=== PATIENT | female | born 1970 | race African-American/Black ===

== ENCOUNTER 2018-03-04 20:24 | Emergency (ER) | payer BC, OTHER ==
[2018-03-04] MEDS ORDERED: NORMAL SALINE 1000 ML 1,000 ML IV ONE (22:22)
[2018-03-04] MEDS ORDERED: METOCLOPRAMIDE HCL INJ/PF 10 MG/2 ML SDV IV ONE (22:22)
--- NOTE | 2018-03-04 22:24 | ER Document Report ---
ED Medical Screen (RME) - General Chief Complaint: Headache Stated Complaint: HEADACHE/NAUSEA Time Seen by Provider: 03/04/18 22:17 Primary Care Provider: CHERRI BRADLEY MD [Primary Care Provider] - Follow up as needed Notes: 48-year-old female with chief complaint of headache for the past 2 days over the right side of her head, vomited multiple times yesterday, 3 times today. States that headache began first, then vomiting, now she has developed upper abdominal pain worse on the right side. She has had cholecystectomy. History of intermittent headaches. Headache was slowly progressive. TRAVEL OUTSIDE OF THE [place] IN LAST 30 DAYS: No - Related Data Allergies/Adverse Reactions: No Known Allergies Allergy (Unverified 03/04/18 20:28) Past Medical History - Social History Frequency of alcohol use: None Drug Abuse: None Renal/ Medical History: Denies: Hx Peritoneal Dialysis Physical Exam - Vital signs Vitals: Temp Pulse Resp BP Pulse Ox 98.3 F 74 16 127/55 H 99 03/04/18 20:45 03/04/18 20:45 03/04/18 20:45 03/04/18 20:45 03/04/18 20:45 - General General appearance: Other - Patient appears slightly tired, does not appear to be in distress - Neurological Neuro grossly intact: Yes Cognition: Normal Orientation: AAOx4 Osmin Coma Scale Verbal: Oriented Osmin Coma Scale Motor: Obeys Commands Speech: Normal Cranial nerves: Normal Cerebellar coordination: Normal Motor strength normal: LUE, RUE, LLE, RLE Course - Vital Signs Vital signs: Temp Pulse Resp BP Pulse Ox 98.3 F 74 16 127/55 H 99 03/04/18 20:45 03/04/18 20:45 03/04/18 20:45 03/04/18 20:45 03/04/18 20:45 Doctor's Discharge - Discharge Referrals: CHERRI BRADLEY MD [Primary Care Provider] - Follow up as needed
[2018-03-04 23:01] LABS: ALANINE AMINOTRANSFERASE 27 U/L (9-52); ALBUMIN 4.1 g/dL (3.5-5.0); ALKALINE PHOSPHATASE 65 U/L (38-126); ASPARTATE AMINO TRANSFERASE 27 U/L (14-36); BILIRUBIN,DIRECT 0.3 mg/dL (0.0-0.4); BILIRUBIN,TOTAL 0.3 mg/dL (0.2-1.3); BLOOD UREA NITROGEN 12 mg/dL (7-20); CALCIUM 8.9 mg/dL (8.4-10.2); GLUCOSE 87 mg/dL (75-110); POTASSIUM 4.8 mmol/L (3.6-5.0); TOTAL PROTEIN 7.3 g/dL (6.3-8.2)
[2018-03-04 23:07] LABS: ANION GAP 5 (5-19); CARBON DIOXIDE 30 mmol/L (22-30); CHLORIDE 107 mmol/L (98-107); SODIUM 141.8 mmol/L (137-145)
[2018-03-04] MEDS ORDERED: MORPHINE SULFATE 10 MG/ML INJ IV ONE (23:16)
[2018-03-04] MEDS ORDERED: LORAZEPAM INJ 2 MG/1 ML VIAL IV ONE (23:16)
[2018-03-04] MEDS ORDERED: PANTOPRAZOLE SODIUM 40 MG VIAL IV ONE (23:21)
[2018-03-04] MEDS ORDERED: TETRACAINE HCL 0.5% OPH SOLN 4 ML OD ONE (23:21)
--- NOTE | 2018-03-04 23:23 | ER Document Report ---
ED General - General Chief Complaint: Headache Stated Complaint: HEADACHE/NAUSEA Time Seen by Provider: 03/04/18 22:17 Primary Care Provider: CHERRI BRADLEY MD [NO LOCAL MD] - Follow up as needed Notes: Patient is a 48-year-old female who presents with complaint of headache. She says that she started having headache a few days ago. She says is mild at first but is gradually worsened over the last 2 days. The headache has continuously been around the right eye. She says is into the right cheondoism area and into the right eye. She says she has some intermittent blurred vision in right eye. She denies any pain in the rest of her head. She has some photophobia associated with the right eye. She is also had some vomiting. Since vomiting she is having some upper abdominal pain. Pain is mostly in right upper quadrant and epigastric region. She does admit that she takes large amount of ibuprofen and Motrin. She does not take anything for acid reflux or gastritis. TRAVEL OUTSIDE OF THE [place] IN LAST 30 DAYS: No - Related Data Allergies/Adverse Reactions: No Known Allergies Allergy (Verified 03/05/18 00:30) Past Medical History - Social History Smoking Status: Current Every Day Smoker Frequency of alcohol use: None Drug Abuse: None Family History: Reviewed & Not Pertinent Patient has suicidal ideation: No Patient has homicidal ideation: No Renal/ Medical History: Denies: Hx Peritoneal Dialysis Review of Systems - Review of Systems Notes: My Normal Review Basic REVIEW OF SYSTEMS: CONSTITUTIONAL : Denies fever, chills, or sweats. Denies recent illness. EENT: Denies eye, ear, throat, or mouth pain or symptoms. Denies nasal or sin us congestion. RESPIRATORY: Denies cough, cold, or chest congestion. Denies shortness of breath, difficulty breathing, or wheezing. GASTROINTESTINAL: Upper abdominal pain. Denies nausea, vomiting GENITOURINARY: Denies difficulty urinating, painful urination, burning, frequency, or blood in urine. MUSCULOSKELETAL: Denies neck or back pain or joint pain or swelling. SKIN: Denies rash or skin lesions. NEUROLOGICAL: Denies altered mental status or loss of consciousness. Has a headache. Denies weakness or paralysis or loss of use of either side. Denies problems with gait or speech. Denies sensory or motor loss. ALL OTHER SYSTEMS REVIEWED AND NEGATIVE. Physical Exam - Vital signs Vitals: Temp Pulse Resp BP Pulse Ox 98.3 F 74 16 127/55 H 99 03/04/18 20:45 03/04/18 20:45 03/04/18 20:45 03/04/18 20:45 03/04/18 20:45 - Notes Notes: General Appearance: Well nourished, alert, cooperative, no acute distress, mild obvious discomfort. Vitals: reviewed, See vital signs table. Head: no swelling or tenderness to the head Eyes: PERRL, EOMI, Conjuctiva clear, intraocular pressure Via Manjinder-Pen is 21 in the right eye. Mouth: No decreasd moisture Lungs: No wheezing, No rales, No rhonci, No accessory muscle use, good air exchange bilaterally. Heart: Normal rate, Regular rythm, No murmur, no rub Abdomen: Normal BS, soft, No rigidity, No abdominal tenderness, No guarding, no rebound, no abdominal masses, no organomegaly Extremities: strength 5/5 in all extremities, good pulses in all extremities, no swelling or tenderness in the extremities, no edema. Skin: warm, dry, appropriate color, no rash Neuro: speech clear, oriented x 3, normal affect, responds appropriately to questions. Cranial nerves II through XII are intact. Distal sensation intact. Patient moves all extremities without difficulty. Course - Re-evaluation Re-evalutation: 03/05/18 03:00 After receiving the morphine her headaches did improve. Is not completely gone but is improved some. She still has some blurred vision. It being that she is still having some visual changes I did go forward with a CT of the head to rule out mass or retro-ocular mass or vascular abnormality as sometimes these can cause unilateral headache with blurred vision. I suspect that most like she is having a ocular migraine. CT scan was normal. Her symptoms have been ongoing for 2 days and therefore I would expect to see evidence of a stroke on CTa if there is one. Once stroke is still not 100% ruled out with CTA; however, patient is having no other focal neurologic deficits and visual disturbance started with the headache making this more likely an ocular migraine. I will refer her to ophthalmology to follow-up with. Also have her follow-up with her neurologist, Dr. Bradley. I informed her that if she is having recurrent worsening headaches, worsening blurred vision, or any new focal neurologic deficits that she must return to ER immediately. Patient agrees with plan will be discharged home. Dictation of this chart was performed using voice recognition software; therefore, there may be some unintended grammatical errors. - Vital Signs Vital signs: Temp Pulse Resp BP Pulse Ox 98.3 F 74 14 109/62 99 03/04/18 20:45 03/05/18 00:45 03/05/18 00:45 03/05/18 01:01 03/04/18 20:45 - Laboratory Result Diagrams: 03/04/18 22:35 Laboratory results interpreted by me: 03/04/18 22:35 Creatinine 0.49 L Discharge - Discharge Clinical Impression: Headache Qualifiers: Headache type: unspecified Headache chronicity pattern: acute headache Intractability: not intractable Qualified Code(s): R51 - Headache Abdominal pain Qualifiers: Abdominal location: epigastric Qualified Code(s): R10.13 - Epigastric pain Condition: Good Disposition: HOME, SELF-CARE Additional Instructions: Your CTa of your head did not show any signs of tumor, bleeding, or stroke. You appear to be having an ocular headache. Due to the visual and eye involvement I want you to follow up closely with the ophthamologist (Dr. Boo). Please call his office this am. I have prescribed some medication (Fioricet) that should help with the headaches. Please only take it if the headaches reoccur. Please be aware that the Fioricet can lead to some sleepiness so do not drive when taking it. Please return to the ER if you have intractable headaches, worsening pain, fevers, vomiting, worsening blurred vision, or any weakness or numbness in your extremities. Please avoid NSAID medications such as Ibuprofen, aspirin, Aleve, Naprosyn, and Advil. It is okay to take tylenol. Please take Pepcid everyday. Please avoid spicy foods, acidic foods, and fried foods for the next week and eat a very bland diet so your stomach lining has an opportunity to heal. Prescriptions: Butalb/Acetaminophen/Caffeine [Fioricet (50-325-40 mg) Tablet] 1 tab PO Q4HP PRN #10 tab PRN Reason: Famotidine [Pepcid 40 mg Tablet] 40 mg PO DAILY #30 tablet Forms: Return to Work Referrals: CHERRI BRADLEY MD [NO LOCAL MD] - Follow up in 3-5 days NIKKI BOO MD [ACTIVE STAFF] - Follow up in 3-5 days
[2018-03-05 01:15] VITALS: BP 109/62
--- NOTE | 2018-03-05 02:34 | RADIOLOGY REPORT (SQ) ---
EXAM DESCRIPTION: CT HEAD, with CTA ANGIOGRAPHY WITHOUT THEN WITH IV CONTRAST COMPLETED DATE/TME: 03/05/2018 01:25 CLINICAL HISTORY: 48 years, Female, headache with blurred vision in right eye. COMPARISON: None. TECHNIQUE: [id number] Images stored on PACS. All CT scanners at this facility use dose modulation, iterative reconstruction, and/or weight based dosing when appropriate to reduce radiation dose to as low as reasonably achievable (ALARA). Axial CTA images were obtained with coronal and sagittal MIPS reconstructions. This exam was performed according to our departmental dose-optimization program, which includes automated exposure control, adjustment of the mA and/or kV according to patient size and/or use of iterative reconstruction technique. [facility]: Dose Right [facility]: CareDose [facility]: Dose Right [facility]: Teradose 4D [facility]: Your.MD LIMITATIONS: None. FINDINGS: CT brain: The globes are intact. Paranasal sinuses and mastoid air cells are unremarkable. No displaced or depressed skull fracture. No intra or extra-axial hemorrhage. CT is limited for evaluation of acute infarct. No CT evidence for large or territorial acute infarct. No mass or midline shift. CTA brain: The vertebral basilar system is unremarkable. Negative for basilar tip aneurysm. The petrous and remaining intracranial portions of the internal carotid arteries are patent bilaterally. No CTA evidence for aneurysm or arteriovenous malformation. No CTA evidence for stenosis, vascular encasement, or displacement. IMPRESSION: Unremarkable CT brain and unremarkable CTA brain TECHNICAL DOCUMENTATION: Quality ID # [id number]: Final reports with documentation of one or more dose reduction techniques (e.g., Automated exposure control, adjustment of the mA and/or kV according to patient size, use of iterative reconstruction technique) copyright 2011 [employer] ([employer])- All Rights Reserved
[2018-03-05] MEDS ORDERED: BUTALB/ACETAMINOPHEN/CAFFEINE 1 TAB EACH PO ONE (02:50)
== END 2018-03-05 03:10 | disposition home or self-care (01) ==
LOC: ER 20:24
DX: R51 Headache (principal); R10.13 Epigastric pain; H53.8 Other visual disturbances; R11.2 Nausea with vomiting, unspecified; R10.10 Upper abdominal pain, unspecified; R10.11 Right upper quadrant pain; Z79.899 Other long term (current) drug therapy; F17.200 Nicotine dependence, unspecified, uncomplicated
CPT/HCPCS: 99284; 96361; 96374; 96375; 36415; 83690; 84703; 80053; 70496; J3490; J2765; J2270; J2060; S0164; J7030

== ENCOUNTER 2019-03-31 18:37 | Emergency (ER) | payer BC ==
[2019-03-31] MEDS ORDERED: SULFAMETHOXAZOLE/TRIMETHOPRIM 800-160 MG TABLET PO ONE ×2 (19:35→22:45)
[2019-03-31] MEDS ORDERED: HYDROCODONE/ACETAMINOPHEN 5-325 MG TABLET PO ONE ×2 (19:35→22:45)
[2019-03-31] MEDS ORDERED: CEPHALEXIN 500 MG CAPSULE PO ONE ×2 (19:35→22:45)
--- NOTE | 2019-03-31 19:38 | ER Document Report ---
HPI - HPI Patient complains to provider of: Abscess Time Seen by Provider: 03/31/19 19:29 Onset/Duration: Worse Quality of pain: Achy Pain Level: 4 Context: Patient presents complaining of abscess to right axilla for the past 3 days. Patient denies any history of MRSA. Patient denies any fever. Associated Symptoms: denies: Fever, Nausea, Vomiting Exacerbated by: Movement Relieved by: Denies Similar symptoms previously: No Recently seen / treated by doctor: No - ROS ROS below otherwise negative: Yes Systems Reviewed and Negative: Yes All other systems reviewed and negative - CONSTITUTIONAL Constitutional: DENIES: Fever, Chills - GASTROINTESTINAL Gastrointestinal: DENIES: Nausea - REPRODUCTIVE Reproductive: DENIES: : - MUSCULOSKELETAL Musculoskeletal: REPORTS: Extremity pain - DERM Skin Color: Erythema Notes: Abscess Past Medical History - General Information source: Patient - Social History Smoking Status: Current Every Day Smoker Chew tobacco use (# tins/day): No Frequency of alcohol use: Occasional Drug Abuse: None Occupation: Retail Family History: Reviewed & Not Pertinent Patient has suicidal ideation: No Patient has homicidal ideation: No Neurological Medical History: Reports: Hx Migraine Renal/ Medical History: Denies: Hx Peritoneal Dialysis Psychiatric Medical History: Reports: Hx Anxiety, Hx Depression Past Surgical History: Reports: Hx Section, Hx Cholecystectomy Vertical Provider Document - CONSTITUTIONAL Agree With Documented VS: Yes Exam Limitations: No Limitations General Appearance: WD/WN, No Apparent Distress - INFECTION CONTROL TRAVEL OUTSIDE OF THE [place] IN LAST 30 DAYS: No - HEENT HEENT: Atraumatic, Normocephalic - NECK Neck: Normal Inspection, Supple - RESPIRATORY Respiratory: Breath Sounds Normal, No Respiratory Distress - CARDIOVASCULAR Cardiovascular: Regular Rate, Regular Rhythm - BACK Back: Normal Inspection - MUSCULOSKELETAL/EXTREMETIES Musculoskeletal/Extremeties: MAEW, Tender - Tenderness to right axilla - NEURO Level of Consciousness: Awake, Alert, Appropriate Motor/Sensory: No Motor Deficit - DERM Integumentary: Warm, Dry, Abscess - Large fluctuant pointing abscess to right axilla with surrounding erythema Course - Vital Signs Vital signs: Temp Pulse Resp BP Pulse Ox 98.3 F 73 18 124/62 100 03/31/19 18:42 03/31/19 18:42 03/31/19 18:42 03/31/19 18:42 03/31/19 18:42 Procedures - Incision and Drainage Right Arm Type: Simple Anesthetic type: 1% Lidocaine Blade size: 11 I&D procedure: Betadine prep applied Incision Method: Incision made by scalpel Amount/type of drainage: Amount of purulent drainage to right axillary abscess Discharge - Discharge Clinical Impression: Abscess, Encounter for incision and drainage procedure Condition: Stable Disposition: HOME, SELF-CARE Instructions: Abscess ([facility]), Cephalexin ([facility]), Oral Narcotic Medication ([facility]), Post Incision and Drainage, Trimethoprim-Sulfa ([facility]) Additional Instructions: Return immediately for any new or worsening symptoms Followup with your primary care provider, call tomorrow to make a followup appointment Prescriptions: Sulfamethoxazole/Trimethoprim [Bactrim Ds Tablet] 1 each PO BID #20 tablet Cephalexin Monohydrate [Keflex 500 mg Capsule] 500 mg PO Q6H 5 Days #20 capsule Hydrocodone/Acetaminophen [Adams 5-325 mg Tablet] 1 tab PO Q6 PRN #10 tablet PRN Reason: Referrals: PENNY GOTTLIEB PA-C [NO LOCAL MD] - Follow up as needed
[2019-03-31 22:53] VITALS: BP 121/65
== END 2019-03-31 22:53 | disposition home or self-care (01) ==
LOC: ER 18:37
PROC: 0H9BXZZ Drainage of Right Upper Arm Skin, External Approach (ICD-10-PCS; principal; 2019-03-31)
DX: L02.411 Cutaneous abscess of right axilla (principal); M79.601 Pain in right arm; F17.200 Nicotine dependence, unspecified, uncomplicated
CPT/HCPCS: 87070; 87077; 87205; 99283